=== PATIENT | female | born 1950 | race Caucasian/White ===

== ENCOUNTER 2018-10-13 19:22 | Inpatient (IN) | payer MEDICARE, OTHER ==
[~2018-10-13] VITALS: Ht 165.1 cm; Wt 96.6 kg
[2018-10-13 20:21] VITALS: BP 109/75
[2018-10-13] MEDS ORDERED: CHOL10003 PO (20:21)
[2018-10-13] MEDS ORDERED: FLEC100T PO (20:21)
[2018-10-13] MEDS ORDERED: MAGN400T3 PO (20:21)
[2018-10-13] MEDS ORDERED: APIX5TAB3 PO (20:21)
[2018-10-13] MEDS ORDERED: METO25TA4 PO (20:21)
[2018-10-13] MEDS ORDERED: TELM20TA PO (20:21)
[2018-10-13 20:40] LABS: BASO % 0 % (0-3); EOS % 1 % (0-3); HEMATOCRIT 41.2 % (36.0-47.0); HEMOGLOBIN 13.9 g/dL (12.0-15.5); LYMPH # 1.6 x10^3/uL (1.0-4.8); LYMPH % 19 % (24-48); MEAN CORPUSCULAR HEMOGLOBIN 31 pg (25-35); MEAN CORPUSCULAR HGB CONC 34 g/dL (31-37); MEAN CORPUSCULAR VOLUME 92 fL (79-100); MONO # 0.8 x10^3/uL (0.0-1.1); MONO % 9 % (0-9); NEUT # 5.9 x10^3uL (1.8-7.7); NEUT % 71 % (31-73); PLATELET COUNT 257 x10^3/uL (140-400); RED CELL DISTRIBUTION WIDTH 12.3 % (11.5-14.5); WHITE BLOOD COUNT 8.3 x10^3/uL (4.0-11.0)
[2018-10-13 20:56] LABS: ALBUMIN 3.1 g/dL (3.4-5.0); ALBUMIN/GLOBULIN RATIO 0.7 (1.0-1.7); CALCIUM 10.5 mg/dL (8.5-10.1); CREATININE 1.6 mg/dL (0.6-1.0); GFR 32.1; POTASSIUM 4.4 mmol/L (3.5-5.1); TOTAL PROTEIN 7.7 g/dL (6.4-8.2)
[2018-10-13] MEDS ORDERED: ACETAMINOPHEN 325 MG TABLET PO PRN (21:00)
[2018-10-13] MEDS ORDERED: ONDANSETRON ODT 4 MG TAB.RAPDIS PO PRN (21:00)
[2018-10-13] MEDS ORDERED: MAGNESIUM OXIDE 400 MG TABLET PO SCH (21:00)
[2018-10-13] MEDS ORDERED: CHOLECALCIFEROL (VITAMIN D3) 1,000 UNIT TABLET PO SCH (21:00)
[2018-10-13] MEDS: IV NORMAL SALINE 1,000ML 1,000 ML IV SCH (21:51)
[2018-10-13] MEDS: MEROPENEM 1 GM in IV NORMAL SALINE 100ML 100 ML IV SCH (21:52)
[2018-10-13] MEDS: METOPROLOL TART IMMED RELEASE 25 MG TABLET PO SCH (21:53)
[2018-10-13] MEDS: HEPARIN for SUB-Q USE 5,000 UNIT/ML VIAL. SQ SCH (22:03)
[2018-10-13] MEDS: FLECAINIDE 50 MG TABLET. PO SCH (22:04)
[2018-10-13 23:01] VITALS: BP 97/58
[2018-10-14] MEDS: IV NORMAL SALINE 1,000ML 1,000 ML IV SCH (05:09)
[2018-10-14 05:42] VITALS: BP 104/70
[2018-10-14] MEDS: MEROPENEM 1 GM in IV NORMAL SALINE 100ML 100 ML IV SCH (05:47)
[2018-10-14] MEDS: HEPARIN for SUB-Q USE 5,000 UNIT/ML VIAL. SQ SCH (05:50)
[2018-10-14 06:54] LABS: BASO % 0 % (0-3); EOS # 0.1 x10^3/uL (0.0-0.7); EOS % 2 % (0-3); HEMATOCRIT 37.3 % (36.0-47.0); HEMOGLOBIN 12.4 g/dL (12.0-15.5); LYMPH # 1.5 x10^3/uL (1.0-4.8); LYMPH % 24 % (24-48); MEAN CORPUSCULAR HEMOGLOBIN 31 pg (25-35); MEAN CORPUSCULAR HGB CONC 33 g/dL (31-37); MEAN CORPUSCULAR VOLUME 93 fL (79-100); MONO # 0.6 x10^3/uL (0.0-1.1); MONO % 9 % (0-9); NEUT # 4.2 x10^3uL (1.8-7.7); NEUT % 65 % (31-73); PLATELET COUNT 236 x10^3/uL (140-400); RED BLOOD COUNT 4.03 x10^6/uL (3.50-5.40); RED CELL DISTRIBUTION WIDTH 12.1 % (11.5-14.5); WHITE BLOOD COUNT 6.5 x10^3/uL (4.0-11.0)
[2018-10-14 07:35] LABS: CLARITY,URINE HAZY; COLOR,URINE YELLOW
[2018-10-14 07:36] LABS: AMORPHOUS SEDIMENT,UR PRESENT /HPF; BACTERIA,URINE FEW /HPF (0-FEW); BILIRUBIN,URINE NEG (NEG); GLUCOSE,URINE NEG (NEG); HYALINE CASTS, URINE OCC /HPF; NITRITE,URINE NEG (NEG); RBC,URINE RARE /HPF (0-2); SQUAMOUS EPITHELIAL CELL,UR FEW /LPF; UROBILINOGEN,URINE 0.2 mg/dL (0.2 mg/dL); WBC,URINE RARE /HPF (0-4)
[2018-10-14] MEDS: METOPROLOL TART IMMED RELEASE 25 MG TABLET PO SCH (08:25)
[2018-10-14 08:26] VITALS: BP 104/70
[2018-10-14] MEDS: FLECAINIDE 50 MG TABLET. PO SCH (08:26)
[2018-10-14] MEDS ORDERED: HYDROcodone/APAP 7.5/325MG 1 TAB TABLET PO PRN (08:30)
[2018-10-14] MEDS ORDERED: CHOLECALCIFEROL (VITAMIN D3) 1,000 UNIT TABLET PO SCH (09:00)
[2018-10-14] MEDS ORDERED: LOSARTAN 25 MG TABLET. PO SCH (09:00)
[2018-10-14] MEDS ORDERED: MAGNESIUM OXIDE 400 MG TABLET PO SCH (09:00)
[2018-10-14] MEDS ORDERED: MEROPENEM 2 GM in IV NORMAL SALINE 100ML 100 ML IV SCH (12:00)
[2018-10-14] MEDS ORDERED: MEROPENEM 1 GM in IV NORMAL SALINE 100ML 100 ML IV SCH (12:00)
[2018-10-14] MEDS ORDERED: LACTOBACILLUS RHAMNOSUS GG 1 CAPSULE. PO SCH (21:00)
--- NOTE | 2018-10-19 19:56 | DS ---
DATE OF DISCHARGE: 10/14/2018 HOSPITAL COURSE: A 68-year-old female came in through the office with severe left lower quadrant pain. The patient's CT scan of abdomen and pelvis demonstrated possibility of [id number] focal inflammatory stranding consistent with possible acute diverticulitis, possible focal perforation. The patient has been started on IV antibiotic therapy and she made fair progress, but still continued to have severe abdominal pain despite the use of aggressive therapy of IV antibiotic therapy. In any case, the patient per request was [facility] evaluation and GI or surgical consultation as indicated. The patient suffered no complications while she was here. Vital signs remain basically stable. Her blood count, her creatinine was elevated to 1.6 with a GFR of 32. Albumin 3.1. IMPRESSION: Acute diverticulitis of the sigmoid colon, possible perforation, chronic kidney disease stage 3, mild protein malnutrition. The patient will be transferred via EMS to the facility down at the [facility] for [facility]. ALBINO BUENO MD DR: MARY/silvia JOB#: [id number] / [id number]
== END 2018-10-14 13:26 | disposition short-term general hospital (02) | DRG 392 ==
LOC: 1 SOUTH 19:22
PROVIDERS: ADMIT Family Medicine; ATTEND Family Medicine
DX: K57.20 Diverticulitis of large intestine with perforation and abscess without bleeding (principal); E44.1 Mild protein-calorie malnutrition; N18.3 Chronic kidney disease, stage 3 (moderate); Z79.899 Other long term (current) drug therapy; Z68.35 Body mass index [BMI] 35.0-35.9, adult
CPT/HCPCS: 36415; 74176; 80048; 80053; 81001; 82565; 83605; 84520; 85025; 85379; 87086; J1644; J2185; J3010; J3490; Q9966; Q9967; J7030

== ENCOUNTER → 2018-10-13 | Outpatient (CLI) | payer MEDICARE, OTHER ==
[~2018-10-13] MED LIST: APIX5TAB3 PO; CHOL10003 PO; FLEC100T PO; IOHEXOL 240 MG/ML 50ML VIAL. ONE; IOHEXOL 300 MG/ML 75 ML VIAL. IV ONE; MAGN400T3 PO; METO25TA4 PO; TELM20TA PO
[2018-10-13 18:21] LABS: CREATININE 1.7 mg/dL (0.6-1.0); GFR 29.9
--- NOTE | 2018-10-13 19:09 | RAD ---
Examination: CT of the abdomen pelvis with oral contrast HISTORY: History of left lower quadrant abdominal pain, tenderness COMPARISON: None available TECHNIQUE: Axial CT images of the abdomen pelvis were performed with oral contrast. Coronal and sagittal reformats are performed Exposure: One or more of the following individualized dose reduction techniques were utilized for this examination: 1. Automated exposure control 2. Adjustment of the mA and/or kV according to patient size 3. Use of iterative reconstruction technique FINDINGS: Bibasilar lungs are clear. Evaluation of the solid organs is limited due to lack of IV contrast. The visualized noncontrasted liver, spleen, adrenals grossly appears unremarkable. The gallbladder is mildly distended. Gallstones identified within the gallbladder. The stomach is mildly distended. The visualized pancreas grossly appears unremarkable. The small bowel is nondilated. Appendix is normal. Feces and gas noted in the colon. There is moderate to severe inflammatory fat stranding identified about the proximal sigmoid colon likely acute diverticulitis with tiny foci of air identified in the perisigmoid region could be focal perforation. There is moderate focal thickening of the sigmoid colon wall proximally Small amount of fluid identified in the uterus. Urinary bladder is mildly distended No evidence of intrarenal collecting system calculi or hydronephrosis The caliber of the aorta grossly appears unremarkable Moderate degenerative changes lumbar spine. Mild anterolisthesis of L3 on L4. IMPRESSION: 1. Moderate to severe focal inflammatory fat stranding identified about the proximal sigmoid colon likely acute diverticulitis with tiny foci of air in the perisigmoid region could be focal perforation. 2. Cholelithiasis. Report called to creative technologist who is going to call the ordering physician at time of dictation. Electronically signed by: Sandeep Vallecillo MD (10/13/2018 7:05 PM) [facility]
== END | disposition home or self-care (01) ==
LOC: CT 17:23
PROVIDERS: ATTEND Family Medicine
DX: K80.20 Calculus of gallbladder without cholecystitis without obstruction (principal); K82.8 Other specified diseases of gallbladder
CPT/HCPCS: 36415; 74176; 82565; 84520; Q9966; Q9967